=== PATIENT | female | born 1980 | race American Indian/Alaskan Native ===

== ENCOUNTER 2017-05-23 23:27 | Emergency (ER) | payer SELFPAY ==
--- NOTE | 2017-05-24 07:56 | Emergency Department Report ---
ED ENT HPI - General Chief complaint: Dental/Oral Stated complaint: TOOTHACHE Time Seen by Provider: 05/24/17 07:51 Source: patient Mode of arrival: Ambulatory Limitations: No Limitations - History of Present Illness Initial comments: Pt reports dental pain since yesterday. No fevers or facial swelling. No further complaints. MD complaint: tooth pain -: Gradual, days(s) (1) Location: tooth # (7) Severity: moderate Quality: stabbing Consistency: constant Improves with: none Worsens with: none Associated Symptoms: toothache. denies: fever, pain with swallowing, sore throat - Related Data Previous Rx's Medication Instructions Recorded Last Taken Type Azithromycin [Zithromax TAB] 250 mg PO QDAY #6 tablet 06/10/16 Unknown Rx guaiFENesin/CODEINE [Robitussin AC] 5 ml PO BID #1 bottle 06/10/16 Unknown Rx Acetaminophen/Codeine [Tylenol 1 tab PO Q6H PRN #12 tab 05/24/17 Unknown Rx /Codeine # 3 tab] Amoxicillin [Amoxicillin TAB] 875 mg PO BID #20 tablet 05/24/17 Unknown Rx Allergies Allergy/AdvReac Type Severity Reaction Status Date / Time No Known Allergies Allergy Unverified 06/10/16 13:10 ED Dental HPI - General Chief complaint: Dental/Oral Stated complaint: TOOTHACHE Time Seen by Provider: 05/24/17 07:51 Source: patient Mode of arrival: Ambulatory Limitations: No Limitations - Related Data Previous Rx's Medication Instructions Recorded Last Taken Type Azithromycin [Zithromax TAB] 250 mg PO QDAY #6 tablet 06/10/16 Unknown Rx guaiFENesin/CODEINE [Robitussin AC] 5 ml PO BID #1 bottle 06/10/16 Unknown Rx Acetaminophen/Codeine [Tylenol 1 tab PO Q6H PRN #12 tab 05/24/17 Unknown Rx /Codeine # 3 tab] Amoxicillin [Amoxicillin TAB] 875 mg PO BID #20 tablet 05/24/17 Unknown Rx Allergies Allergy/AdvReac Type Severity Reaction Status Date / Time No Known Allergies Allergy Unverified 06/10/16 13:10 ED Review of Systems ROS: Stated complaint: TOOTHACHE Other details as noted in HPI Comment: All other systems reviewed and negative Constitutional: denies: chills, fever Eyes: denies: eye pain, eye discharge, vision change ENT: dental pain. denies: ear pain, throat pain Respiratory: denies: cough, shortness of breath, wheezing Cardiovascular: denies: chest pain, palpitations Endocrine: no symptoms reported Gastrointestinal: denies: abdominal pain, nausea, diarrhea Genitourinary: denies: urgency, dysuria, discharge Musculoskeletal: denies: back pain, joint swelling, arthralgia Skin: denies: rash, lesions Neurological: denies: headache, weakness, paresthesias Psychiatric: denies: anxiety, depression Hematological/Lymphatic: denies: easy bleeding, easy bruising ED Past Medical Hx - Past Medical History Previous Medical History?: No Additional medical history: anemia - Surgical History Past Surgical History?: No - Social History Smoking Status: Current Every Day Smoker Substance Use Type: None - Medications Home Medications: Home Medications Medication Instructions Recorded Confirmed Last Taken Type Azithromycin [Zithromax TAB] 250 mg PO QDAY #6 tablet 06/10/16 Unknown Rx guaiFENesin/CODEINE [Robitussin AC] 5 ml PO BID #1 bottle 06/10/16 Unknown Rx Acetaminophen/Codeine [Tylenol 1 tab PO Q6H PRN #12 tab 05/24/17 Unknown Rx /Codeine # 3 tab] Amoxicillin [Amoxicillin TAB] 875 mg PO BID #20 tablet 05/24/17 Unknown Rx ED Physical Exam - General Limitations: No Limitations General appearance: alert, in distress (discomfort from pain) - Head Head exam: Present: atraumatic, normocephalic - Eye Eye exam: Present: normal appearance - ENT ENT exam: Present: mucous membranes moist, other (Poor dentition, pain to tooth 7. No facial or neck swelling noted. ) - Neck Neck exam: Present: normal inspection - Respiratory Respiratory exam: Present: normal lung sounds bilaterally. Absent: respiratory distress - Cardiovascular Cardiovascular Exam: Present: regular rate, normal rhythm. Absent: systolic murmur, diastolic murmur, rubs, gallop - GI/Abdominal GI/Abdominal exam: Present: soft, normal bowel sounds - Extremities Exam Extremities exam: Present: normal inspection - Back Exam Back exam: Present: normal inspection - Neurological Exam Neurological exam: Present: alert, oriented X3 - Psychiatric Psychiatric exam: Present: normal affect, normal mood - Skin Skin exam: Present: warm, dry, intact, normal color. Absent: rash ED Course Vital Signs 05/24/17 05/24/17 05/24/17 00:04 00:24 03:36 Temperature 98.3 F 98.3 F 98.1 F Pulse Rate 76 78 76 Respiratory 18 17 17 Rate Blood Pressure 165/102 165/102 171/105 Blood Pressure [Left] O2 Sat by Pulse 98 99 99 Oximetry 05/24/17 06:34 Temperature 98 F Pulse Rate 76 Respiratory 18 Rate Blood Pressure Blood Pressure 174/110 [Left] O2 Sat by Pulse Oximetry - Reevaluation(s) Reevaluation #1: 05/24/17 07:55 Pt is in NAD and stable for d/c. ED Medical Decision Making - Medical Decision Making Pt with dental pain w/o facial or neck swelling. Will give Amoxil and have her follow with dentist this week. BP mildly elevated, possibly due to pain. Asymptomatic. - Differential Diagnosis dental pain, abscess, htn Critical care attestation.: If time is entered above; I have spent that time in minutes in the direct care of this critically ill patient, excluding procedure time. ED Disposition Clinical Impression: Elevated BP without diagnosis of hypertension, Dentalgia Disposition: - TO HOME OR SELFCARE Is pt being admited?: No Condition: Good Instructions: Toothache (ED) Prescriptions: Acetaminophen/Codeine [Tylenol /Codeine # 3 tab] 1 tab PO Q6H PRN #12 tab PRN Reason: Pain Amoxicillin [Amoxicillin TAB] 875 mg PO BID #20 tablet Referrals: PRIMARY CARE, [Primary Care Provider] - 3-5 Days RUTH MILLAN DDS [Staff Physician] - 3-5 Days Time of Disposition: 07:59
[2017-05-24] MEDS ORDERED: PERCOCET 5/325 PO ONE (07:58)
[2017-05-24 08:11] VITALS: BP 173/115
== END 2017-05-24 08:17 | disposition home or self-care (01) ==
LOC: ED 23:27
DX: K08.89 Other specified disorders of teeth and supporting structures (principal); R03.0 Elevated blood-pressure reading, without diagnosis of hypertension; F17.200 Nicotine dependence, unspecified, uncomplicated
CPT/HCPCS: 99282